=== PATIENT | female | born 1950 | race Caucasian/White ===

== ENCOUNTER 2017-02-24 12:23 | Emergency (ER) | payer OTHER ==
[~2017-02-24] VITALS: Ht 167.6 cm; Wt 67.0 kg
[2017-02-24 12:27] VITALS: BP 158/74
== END 2017-02-24 13:32 | disposition home or self-care (01) ==
LOC: ED 13:26
DX: S01.112D Laceration without foreign body of left eyelid and periocular area, subsequent encounter (principal); Y84.8 Other medical procedures as the cause of abnormal reaction of the patient, or of later complication, without mention of misadventure at the time of the procedure; Y92.89 Other specified places as the place of occurrence of the external cause; Y99.8 Other external cause status
CPT/HCPCS: 99281